=== PATIENT | male | born 1990 | race Caucasian/White ===

== ENCOUNTER 2021-01-19 08:57 | Emergency (ER) | payer SELFPAY ==
[2021-01-19 09:07] VITALS: BP 151/75; PULSE 73; RESP 16; TEMP 36.5; O2SAT 97
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
== END 2021-01-19 09:30 | disposition home or self-care (01) ==
PROVIDERS: Emergency Provider Nurse Practitioner
DX: J02.9 Acute pharyngitis, unspecified (principal); F41.9 Anxiety disorder, unspecified; F43.10 Post-traumatic stress disorder, unspecified; X58.XXXA Exposure to other specified factors, initial encounter
CPT/HCPCS: 87081; 87880; 99203; G0463